=== PATIENT | male | born 1970 | race Caucasian/White ===

== ENCOUNTER 2020-08-22 18:44 | Emergency (ER) | payer OTHER ==
[~2020-08-22 18:44] MED LIST: Iopamidol 370 76% 125 ML VIAL FS ONE; Sodium Chloride 0.9% 100 ML BAG ONE
[2020-08-22 19:10] LABS: #Basophils 0.2 thou/uL (0.0-0.2); #Eosinphils 0.2 thou/uL (0.0-0.7); #Lymphocytes 2.9 thou/uL (1.20-3.40); #Neutrophils 11.4 thou/uL (1.40-6.50); %Basophils 1.3 % (0.0-1.0); %Eosinophils 1.3 % (0.0-10.0); %Lymphocytes 18.6 % (21.0-51.0); %Monocytes 6.5 % (0.0-10.0); %Neutrophils 72.4 % (42.0-75.0); Hemoglobin 16.5 g/dL (14.0-18.0); Mean Corpuscular HGB CONC 32.3 g/dL (32.0-36.0); Mean Corpuscular Hemoglobin 31.9 pg (27.0-31.0); Mean Corpuscular Volume 98.8 fL (78.0-98.0); Mean Platelet Volume 6.8 fL (7.4-10.4); Platelet Count 299 thou/uL (130-400); RBC Distribution Width 11.7 % (11.5-14.5); Red Blood Cell (RBC) Count 5.17 mill/uL (4.70-6.10); White Blood Cell (WBC) Count 15.7 thou/uL (4.8-10.8)
[2020-08-22 19:27] LABS: ALT (SGPT) 29 U/L (8-55); AST (SGOT) 18 U/L (5-34); Albumin 4.2 g/dL (3.5-5.0); Alkaline Phosphatase 75 U/L (40-110); Anion Gap 16 mmol/L (10-20); BUN (Urea Nitrogen) 16 mg/dL (8.9-20.6); Bilirubin, Total 0.5 mg/dL (0.2-1.2); Calc. Creatinine Clearance 0 mL/min (70-130); Calcium 8.9 mg/dL (7.8-10.44); Carbon Dioxide 25 mmol/L (22-29); Chloride 103 mmol/L (98-107); Globulin 2.6 g/dL (2.4-3.5); Glucose 129 mg/dL (70-105); Magnesium 2.1 mg/dL (1.6-2.6); Potassium 4.1 mmol/L (3.5-5.1); Protein, Total 6.8 g/dL (6.0-8.3); Sodium 140 mmol/L (136-145)
--- NOTE | 2020-08-22 19:54 | CT ---
CT angiogram thorax with contrast CT angiogram abdomen with contrast: HISTORY: 50-year-old hypertensive male presents with acute chest pain radiating to back. Concern for aortic di ssection. TECHNIQUE: IV injection of iodinated contrast. Arterial bolus chasing technique. Scan acquisition from top of aortic arch to iliac crests. 3-D MIP reconstructions. FINDINGS: Gallbladder is distended, with mural thickening, mural edema, and mural enhancement. Low attenuation material within the gallbladder lumen could represent sludge balls or noncalcified ga llstones. Patchy region of enhancement in the left lobe of the liver could represent a perfusion anomaly. Lung apices excluded from [id number]. Multiple moderate sized bullae at medial aspect of left upper lobe, indenting the anterior mediastina l fat, and crossing the midline to the right. No consolidation, pleural effusion, pneumothorax, cardiomegaly, pericardial effusion, mediastinal lym phadenopathy, or hilar lymphadenopathy. Broad, hazy groundglass pulmonary densities in posterior subpleural locations of lower lobes, probabl y representing dependent pulmonary changes. Trachea and bilateral mainstem bronchi are patent and clear. Good opacification of pulmonary arteries and aorta. No pulmonary thromboembolism, including peripheral branches. No acute compression fracture of thoracic or lumbar spine. Within the limitations of an [id number] CT, no major pathology identified involving kidneys, pancreas, adrenals, or spleen. No small bowel dilation, ascites, or pneumoperitoneum identified superior to the pelvic cavity. No aortic dissection, aneurysm, or rupture. Atherosclerosis of infrarenal abdominal aorta. No high-grade stenosis of celiac artery, SMA, common iliac arteries, or bilateral renal arteries. IMPRESSION: 1) evidence for acute cholecystitis. 2) no aortic dissection, aneurysm, or rupture. 3) mild to moderate left-sided paraseptal emphysema. 4) no pulmonary thromboembolism.
[2020-08-22] MEDS ORDERED: Sodium Chloride 0.9% 1,000 ML ONE (20:02)
[2020-08-22] MEDS ORDERED: Morphine 4 MG/ML VIAL ONE (20:02)
[2020-08-22] MEDS ORDERED: Piperacillin/Tazobactam 4.5 GM VIAL ONE (20:02)
[2020-08-22] MEDS ORDERED: Ondansetron PF 4 MG/2 ML Vial ONE (20:02)
[2020-08-22] MEDS ORDERED: Sodium Chloride 0.9% 100 ML ONE (20:03)
[2020-08-22] MEDS ORDERED: Aspirin Chewable 81 MG TAB ONE (20:47)
[2020-08-22] MEDS ORDERED: Nitroglycerin 2% Ointment 1 INCH/1 GM Packet ONE (20:47)
== END 2020-08-22 20:56 | disposition short-term general hospital (02) ==
LOC: MADERS 18:44
DX: I20.0 Unstable angina (principal); E78.5 Hyperlipidemia, unspecified; E78.00 Pure hypercholesterolemia, unspecified; F17.210 Nicotine dependence, cigarettes, uncomplicated; Z79.899 Other long term (current) drug therapy
CPT/HCPCS: 71275; 74174; 80053; 83605; 83735; 83880; 84484; 85025; 93005; 96365; 96375; J2270; J2405; J2543; J3490; J7050; Q9967

== ENCOUNTER 2021-05-06 07:19 | Emergency (ER) | payer OTHER ==
[2021-05-06] MEDS ORDERED: Aspirin Chewable 81 MG TAB ONE ×2 (08:07)
[2021-05-06 23:31] LABS: SARS-CoV-2 PCR by NAA Not Detected (NotDetected)
== END 2021-05-06 08:48 | disposition home or self-care (01) ==
LOC: MADERS 07:19
DX: B34.9 Viral infection, unspecified (principal); Z20.822 Contact with and (suspected) exposure to COVID-19; E78.5 Hyperlipidemia, unspecified; E78.00 Pure hypercholesterolemia, unspecified; F17.210 Nicotine dependence, cigarettes, uncomplicated
CPT/HCPCS: 71045; 93005; J7620; U0003; U0005

== ENCOUNTER 2021-05-11 08:51 | Emergency (ER) | payer OTHER | END 2021-05-11 10:56 | disposition E | LOC: MADERS 08:51 | DX: S01.03XA Puncture wound without foreign body of scalp, initial encounter (principal); E78.5 Hyperlipidemia, unspecified; E78.00 Pure hypercholesterolemia, unspecified; F17.210 Nicotine dependence, cigarettes, uncomplicated | CPT/HCPCS: 92950; G0390 ==